=== PATIENT | female | born 1995 | race Caucasian/White ===

== ENCOUNTER → 2019-12-11 | Outpatient (CLI) | payer BC ==
[2019-12-11 23:59] LABS: Thyroid Peroxidase Antibodies 40.3 U/mL (0.0-60.0)
== END | disposition home or self-care (01) ==
LOC: LABWHC1 16:56
PROVIDERS: ATTEND Family Medicine
DX: E03.9 Hypothyroidism, unspecified (principal)
CPT/HCPCS: 36415; 86376; 86800

== ENCOUNTER → 2019-12-15 | Outpatient (CLI) | payer BC ==
--- NOTE | 2019-12-16 08:35 | US ---
EXAMINATION TYPE: US thyroid st tissue head/neck DATE OF EXAM: 12/15/2019 COMPARISON: NONE CLINICAL HISTORY: E03.9 hypothyroidism. Hypothyroidism. Strong family history of Ginny's. Patient is taking synthroid. GLAND SIZE: Right Lobe: 3.8 x 1.2 x 1.5 cm Overall Parenchyma: heterogenous Left Lobe: 4.3 x 1.5 x 1.4 cm Overall Parenchyma: heterogeneous Isthmus Thickness: 0.31 cm NODULES RIGHT: # of nodules measured on right: 0 LEFT: # of nodules measured on left: 0 ISTHMUS: # of nodules measured in the isthmus: 0 Bilateral neck scanned. Hypoechoic area seen lateral to right thyroid lobe measurin.2 x 1.3 x 0.6 cm. IMPRESSION: 1. Normal thyroid scan
== END | disposition home or self-care (01) ==
LOC: RADUSMAIN 17:43
PROVIDERS: ATTEND Family Medicine
DX: E03.9 Hypothyroidism, unspecified (principal)
CPT/HCPCS: 76536